=== PATIENT | female | born 1970 | race Caucasian/White ===

== ENCOUNTER 2018-12-24 04:49 | Emergency (ER) | payer BC ==
[~2018-12-24] VITALS: Ht 172.7 cm; Wt 113.4 kg
[2018-12-24] MEDS ORDERED: IV NORMAL SALINE 1000ML BAG 1,000 ML IV ONE (05:15)
--- NOTE | 2018-12-24 05:18 | EKG ---
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
[2018-12-24 05:35] LABS: CALCIUM 10.8 mg/dL (8.5-10.1); CREATININE 0.7 mg/dL (0.6-1.0); GFR 89.3; POTASSIUM 3.9 mmol/L (3.5-5.1)
[2018-12-24 05:39] LABS: BASO # 0.1 x10^3/uL (0.0-0.2); BASO % 1 % (0-3); EOS # 0.1 x10^3/uL (0.0-0.7); EOS % 1 % (0-3); HEMATOCRIT 41.2 % (36.0-47.0); HEMOGLOBIN 13.9 g/dL (12.0-15.5); LYMPH # 2.7 x10^3/uL (1.0-4.8); LYMPH % 27 % (24-48); MEAN CORPUSCULAR HEMOGLOBIN 31 pg (25-35); MEAN CORPUSCULAR HGB CONC 34 g/dL (31-37); MEAN CORPUSCULAR VOLUME 92 fL (79-100); MONO # 0.7 x10^3/uL (0.0-1.1); MONO % 7 % (0-9); NEUT # 6.5 x10^3uL (1.8-7.7); NEUT % 65 % (31-73); PLATELET COUNT 312 x10^3/uL (140-400); RED BLOOD COUNT 4.45 x10^6/uL (3.50-5.40); RED CELL DISTRIBUTION WIDTH 13.7 % (11.5-14.5); WHITE BLOOD COUNT 10.1 x10^3/uL (4.0-11.0)
[2018-12-24 05:41] LABS: ALBUMIN/GLOBULIN RATIO 1.1 (1.0-1.7); MAGNESIUM 1.8 mg/dL (1.8-2.4); TOTAL BILIRUBIN 0.3 mg/dL (0.2-1.0); TOTAL PROTEIN 7.8 g/dL (6.4-8.2)
[2018-12-24 05:49] LABS: CREATINE KINASE 99 U/L (26-192)
--- NOTE | 2018-12-24 05:53 | PHYS DOC ---
Past Medical History Past Medical History: Depression, High Cholesterol, Hypertension, Other Additional Past Medical Histor: RA (ARASH NORIEGA DO) Past Surgical History: Cervical Fusion, Oophorectomy, Tubal ligation Additional Past Surgical Histo: L OVARY (ARASH NORIEGA DO) Smoking: Cigarettes, 1 Pack Per Day Alcohol Use: Occasionally Drug Use: None (ARASH NORIEGA DO) Adult General Chief Complaint Chief Complaint: ANXIETY/PANIC ATTACK HPI HPI 48-year-old female presents with report of palpitations and shakiness which started at 1900 last night. Denies known stressors. Patient reports sensation of almost passing out. Denies nausea or vomiting. Denies leg swelling or calf tenderness. Denies trauma. Family reports concern for possible panic attack. Patient reports she was able to sleep last nigh,t but awoke early this morning with same symptoms and therefore decided to present to the ER for further evaluation and treatment. Denies suicidal or homicidal ideation. (ARASH NORIEGA DO) Review of Systems Review of Systems Constitutional: Denies fever or chills [] Eyes: Denies change in visual acuity, redness, or eye pain [] HENT: Denies nasal congestion or sore throat [] Respiratory: Denies cough or shortness of breath [] Cardiovascular: Denies chest pain; reports palpitations GI: Denies abdominal pain, nausea, vomiting, or diarrhea [] : Denies dysuria or hematuria [] Musculoskeletal: Denies back pain or joint pain [] Integument: Denies rash or skin lesions [] Neurologic: Denies headache, focal weakness or sensory changes; reports lightheadedness Psychiatric: Denies suicidal or homicidal ideation; reports anxiety Complete systems were reviewed and found to be within normal limits, except as documented in this note. (ARASH NORIEGA DO) Current Medications Current Medications Current Medications Medications (Trade) Dose Ordered Sig/Latoya Start Time Stop Time Status Last Admin Dose Admin Lorazepam (Ativan) 0.5 mg 1X ONCE 12/24/18 05:30 12/24/18 05:31 DC 12/24/18 05:27 0.5 MG Sodium Chloride 1,000 ml @ 1,000 mls/hr 1X ONCE 12/24/18 05:15 12/24/18 06:14 DC 12/24/18 05:26 1,000 MLS/HR (MILA EWING MD) Allergies Allergies Allergies Coded Allergies Type Severity Reaction Last Updated Verified No Known Drug Allergies 12/24/18 No (MILA EWING MD) Physical Exam Physical Exam Constitutional: Well developed, well nourished, anxious in appearance, non-toxic HENT: Normocephalic, atraumatic, oropharynx moist Eyes: PERRL, EOMI, conjunctiva normal, no discharge. [] Neck: Normal range of motion, no tenderness, supple, no stridor. [] Cardiovascular:Heart rate regular rhythm, no murmur [] Lungs & Thorax: Bilateral breath sounds clear to auscultation [] Abdomen: Soft, no tenderness, no masses, no pulsatile masses. [] Skin: Warm, dry, no erythema, no rash. [] Extremities: No tenderness, ROM intact, no edema. [] Neurologic: Alert and oriented X 3, normal motor function, normal sensory function, no focal deficits noted. [] Psychologic: Affect anxious, judgement normal (ARASH NORIEGA DO) Current Patient Data Vital Signs Vital Signs Date Time Temp Pulse Resp B/P (MAP) Pulse Ox O2 Delivery O2 Flow Rate FiO2 12/24/18 04:49 98.6 92 20 151/97 (115) 97 Room Air 98.6 (MILA EWING MD) Lab Values Laboratory Tests Test 12/24/18 05:10 12/24/18 05:50 White Blood Count 10.1 x10^3/uL (4.0-11.0) Red Blood Count 4.45 x10^6/uL (3.50-5.40) Hemoglobin 13.9 g/dL (12.0-15.5) Hematocrit 41.2 % (36.0-47.0) Mean Corpuscular Volume 92 fL (79-100) Mean Corpuscular Hemoglobin 31 pg (25-35) Mean Corpuscular Hemoglobin Concent 34 g/dL (31-37) Red Cell Distribution Width 13.7 % (11.5-14.5) Platelet Count 312 x10^3/uL (140-400) Neutrophils (%) (Auto) 65 % (31-73) Lymphocytes (%) (Auto) 27 % (24-48) Monocytes (%) (Auto) 7 % (0-9) Eosinophils (%) (Auto) 1 % (0-3) Basophils (%) (Auto) 1 % (0-3) Neutrophils # (Auto) 6.5 x10^3uL (1.8-7.7) Lymphocytes # (Auto) 2.7 x10^3/uL (1.0-4.8) Monocytes # (Auto) 0.7 x10^3/uL (0.0-1.1) Eosinophils # (Auto) 0.1 x10^3/uL (0.0-0.7) Basophils # (Auto) 0.1 x10^3/uL (0.0-0.2) Sodium Level 139 mmol/L (136-145) Potassium Level 3.9 mmol/L (3.5-5.1) Chloride Level 101 mmol/L (98-107) Carbon Dioxide Level 26 mmol/L (21-32) Anion Gap 12 (6-14) Blood Urea Nitrogen 10 mg/dL (7-20) Creatinine 0.7 mg/dL (0.6-1.0) Estimated GFR (Cockcroft-Gault) 89.3 BUN/Creatinine Ratio 14 (6-20) Glucose Level 131 mg/dL (70-99) H Calcium Level 10.8 mg/dL (8.5-10.1) H Magnesium Level 1.8 mg/dL (1.8-2.4) Total Bilirubin 0.3 mg/dL (0.2-1.0) Aspartate Amino Transferase (AST) 17 U/L (15-37) Alanine Aminotransferase (ALT) 30 U/L (14-59) Alkaline Phosphatase 80 U/L (46-116) Creatine Kinase 99 U/L (26-192) Creatine Kinase MB (Mass) < 0.5 ng/mL (0.0-3.6) Creatine Kinase MB Relative Index % (0-4) Troponin I Quantitative < 0.017 ng/mL (0.000-0.055) Total Protein 7.8 g/dL (6.4-8.2) Albumin 4.0 g/dL (3.4-5.0) Albumin/Globulin Ratio 1.1 (1.0-1.7) Thyroid Stimulating Hormone (TSH) 3.109 uIU/mL (0.358-3.74) Free Thyroxine 0.84 ng/dL (0.76-1.46) Free Triiodothyronine (T3) pg/mL 3.76 pg/mL (2.18-3.98) Urine Collection Type Unknown Urine Color Yellow Urine Clarity Clear Urine pH 7.0 Urine Specific Franklin 1.010 Urine Protein Negative mg/dL (NEG-TRACE) Urine Glucose (UA) Negative mg/dL (NEG) Urine Ketones (Stick) Negative mg/dL (NEG) Urine Blood Negative (NEG) Urine Nitrite Negative (NEG) Urine Bilirubin Negative (NEG) Urine Urobilinogen Dipstick 0.2 mg/dL (0.2 mg/dL) Urine Leukocyte Esterase Negative (NEG) Urine RBC 0 /HPF (0-2) Urine WBC 0 /HPF (0-4) Urine Bacteria 0 /HPF (0-FEW) Laboratory Tests 12/24/18 05:10 Laboratory Tests 12/24/18 05:10 (MILA EWING MD) EKG EKG @0506 NSR at 84bpm, NO ST elevation, (ARASH NORIEGA DO) Radiology/Procedures Radiology/Procedures [] (ARASH NORIEGA DO) Course & Med Decision Making Course & Med Decision Making Pertinent Lab studies reviewed. (See chart for details) Patient presents with history of present illness and physical exam consistent for anxiety. Patient does report associated palpitations and lightheadedness. Patient neurologically intact. EKG stable. Labs obtained and pending at this time. Ativan provided with interval improvement of symptoms. Sign out given to Dr. Ewing for further evaluation and final disposition. Discussed current findings and plan with patient and family, who acknowledge understanding and agreement. (ARASH NORIEGA DO) Course & Med Decision Making 6:25 AM: Patient care was assumed from Dr. Noriega at shift change, patient reported palpitations, no evidence of ectopy noted on monitor, EKG normal, patient without chest pain. She is feeling much better after anxiolytics. I discussed test results with the patient, the need for close PCP follow-up, as well as cardiology follow-up if palpitations persist, and we discussed return precautions. (MILA EWING MD) Dragon Disclaimer Dragon Disclaimer This electronic medical record was generated, in whole or in part, using a voice recognition dictation system. (ARASH NORIEGA DO) Departure Departure Impression: Primary Impression: Palpitations Additional Impression: Anxiety Disposition: HOME, SELF-CARE Condition: STABLE Referrals: ARAVIND ARVIZU MD (PCP) CHRISTOPHER ZHU MD Patient Instructions: Anxiety and Panic Attacks, [id number], Palpitations, [id number] Problem Qualifiers ARASH NORIEGA DO Dec 24, 2018 05:53 MILA EWING MD Dec 24, 2018 06:29
[2018-12-24 06:00] VITALS: BP 107/73
[2018-12-24 06:01] LABS: BILIRUBIN,URINE NEGATIVE (NEG); CLARITY,URINE CLEAR; COLOR,URINE YELLOW; NITRITE,URINE NEGATIVE (NEG); PROTEIN,URINE NEGATIVE (NEG-TRACE); UROBILINOGEN,URINE 0.2 mg/dL (0.2 mg/dL)
[2018-12-24 06:09] LABS: FREE T4 0.84 ng/dL (0.76-1.46); THYROID STIM HORMONE (TSH) 3.109 uIU/mL (0.358-3.74)
[2018-12-24 06:12] LABS: BACTERIA,URINE 0 /HPF (0-FEW); RBC,URINE 0 /HPF (0-2); WBC,URINE 0 /HPF (0-4)
== END 2018-12-24 06:30 | disposition home or self-care (01) ==
LOC: ER 04:49
DX: F41.9 Anxiety disorder, unspecified (principal); R00.2 Palpitations; R42 Dizziness and giddiness; F32.9 Major depressive disorder, single episode, unspecified; E78.00 Pure hypercholesterolemia, unspecified; I10 Essential (primary) hypertension; F17.210 Nicotine dependence, cigarettes, uncomplicated; M06.9 Rheumatoid arthritis, unspecified; Z98.51 Tubal ligation status; Z90.721 Acquired absence of ovaries, unilateral
CPT/HCPCS: 36415; 80053; 81001; 82553; 83735; 84439; 84443; 84481; 84484; 85025; 93005; 96361; 96374; 99284; J2060; J7030

== ENCOUNTER → 2019-01-14 | Day surgery (SDC) | payer BC ==
[~2019-01-14] MED LIST: ASPI-630 PO; CHOL2000 PO; CRESTOR20 MG PO; ETOD400T PO; HYDR200T5 PO; IV RINGERS,LACTATED 1000ML 1,000 ML IV SCH; LISI-334 PO; LORA10TA3 PO; METH2.5T PO; OXYC-411 PO; PRED2.5T PO; PROPOFOL 40 ML IV ONE; SERT50TA PO
--- NOTE | 2019-01-14 11:18 | PREOP HP ---
DATE OF SERVICE: 01/14/2019 REQUESTING PHYSICIAN: Dr. Jolene Gary. REASON FOR PROCEDURE: Abdominal pain. HISTORY OF PRESENT ILLNESS: This is a 48-year-old female who presents for epigastric abdominal pain. She was last seen in our office on 06/29/2018. She has continued to have episodes of the pain and she had recent anxiety attacks. ALLERGIES: No known drug allergies. PAST MEDICAL HISTORY: 1. Anxiety. 2. Hypercholesterolemia. 3. Fibromyalgia. 4. Diverticulitis. SOCIAL HISTORY: She admits to tobacco. She denies illicit drug use, but drinks 7 or less alcoholic beverages a week. MEDICATIONS: MAR reviewed. REVIEW OF SYSTEMS: A 13-point review of systems was done. It is positive per HPI, otherwise negative. PHYSICAL EXAMINATION: VITAL SIGNS: She is afebrile and her vital signs are stable. GENERAL: She is a well-developed, well-nourished female, in no apparent distress. HEENT: Oropharynx is clear. CARDIOVASCULAR: S1, S2. LUNGS: Clear. ABDOMEN: Active bowel sounds, soft, nontender, nondistended. EXTREMITIES: No edema. NEUROLOGIC: Awake, alert and oriented x 3. ASSESSMENT AND PLAN: Epigastric abdominal pain. The risks and benefits including bleeding, perforation, non-diagnosis and sedation were explained. She has agreed to proceed. Thank you for allowing me to participate in the care of this patient. PAM CHOE MD DR: TRELL/nella JOB#: [id number] / [id number]
[2019-01-14 11:37] VITALS: BP 111/55
--- NOTE | 2019-01-15 17:10 | PATHOLOGY ---
[facility] Accession Number: [id number] . 01 Material submitted: . PART A: SMALL BOWEL BIOPSY PART B: GASTRIC ANTRUM BIOPSY PART C: DISTAL ESOPHAGUS . 01 Clinical history: . Epigastric pain . 02 Diagnosis: A. Small bowel biopsy: - No significant pathologic abnormalities, with prominent submucosal Manfred's glands. . B. Gastric biopsy, antrum: - Chronic gastritis, mild. . C. Esophageal biopsy, distal esophagus: - Segments of hyperplastic squamous esophageal mucosa with focal contiguous columnar lined mucosa showing chronic inflammation and focal intestinal metaplasia with goblet cells consistent with Watkins's change. . (JPM:pit 01/15/2019) [facility]/01/15/2019 . 02 Comment: Sections of the small bowel biopsy reveal segments of duodenal mucosa. There are prominent submucosal Manfred's glands. The mucosal villi show no sprue-like changes or significant inflammatory changes. . Sections of the gastric antral biopsy show congestion and mild chronic inflammation. A properly controlled immunoperoxidase stain for Helicobacter is negative for Helicobacter organisms. . Sections of the distal esophageal biopsy reveal segments of tangentially oriented, hyperplastic squamous esophageal mucosa with focally contiguous columnar lined mucosa showing chronic inflammation and focal intestinal metaplasia with goblet cells, consistent with Watkins's change. There is no dysplasia or evidence of malignancy. (JPM:pit 01/15/2019) . Special stain performed: Immunoperoxidase for Helicobacter on B1. . 02 Electronically signed: . Ivan Cruz MD, Pathologist NPI- [id number] . 01 Gross description: . A. Received in formalin labeled "Leny Jackson, small bowel BX," are 3 segments of caruso soft tissue measuring 0.9 x 0.6 x 0.2 cm in aggregate dimensions and ranging from 0.4 to 0.6 cm in maximum dimension. The specimen is submitted entirely in cassette A1. . B. Received in formalin labeled "Leny Jackson, gastric antrum BX," are 2 segments of caruso soft tissue measuring 0.7 x 0.3 x 0.2 cm in aggregate dimensions and ranging from 0.3 to 0.4 cm in maximum dimension. The specimen is submitted entirely in cassette B1. . C. Received in formalin labeled "Leny Jackson, distal esophagus BX," are 4 segments of caruso soft tissue measuring 1.2 x 0.8 x 0.2 cm in aggregate dimensions and ranging from 0.3 to 0.6 cm in maximum dimension. The specimen is submitted entirely in cassette C1. ([facility]; 01/14/2019 TOB/TOB . 02 Pathologist provided ICD-10: K29.50, K20.9, K22.70 . 02 CPT . 941688, 603240, 929105, N22890 Specimen Comment: A courtesy copy of this report has been sent to Specimen Comment: [phone], . Specimen Comment: Report sent to / DR ARVIZU Specimen Comment: A duplicate report has been generated due to demographic updates. Performed at: 01 [facility] [address] [facility] [address], [place], [place] [id number] MD Jorge Luis Beasley MD Phone: [phone] Performed at: 02 [facility] [address] [place], [place] [id number] MD Ivan Cruz MD Phone: [phone]
== END | disposition home or self-care (01) ==
LOC: ENDOS 09:28
PROVIDERS: ATTEND Internal Medicine Gastroenterology
DX: K21.0 Gastro-esophageal reflux disease with esophagitis (principal); K29.50 Unspecified chronic gastritis without bleeding; K22.70 Barrett's esophagus without dysplasia; F41.9 Anxiety disorder, unspecified; E78.00 Pure hypercholesterolemia, unspecified; M79.7 Fibromyalgia; Z72.89 Other problems related to lifestyle; Z86.010 Personal history of colon polyps; F17.210 Nicotine dependence, cigarettes, uncomplicated; Z79.82 Long term (current) use of aspirin; Z79.899 Other long term (current) drug therapy; Z98.890 Other specified postprocedural states
CPT/HCPCS: 43239; 88305; 88342; J2704

== ENCOUNTER → 2021-09-06 | Day surgery (SDC) | payer OTHER ==
[~2021-09-06] VITALS: Ht 172.7 cm; Wt 94.0 kg
[~2021-09-06] MED LIST changes: +CYCL10TA2 PO; -ETOD400T PO; +ETOD400T3 PO; +LIDOCAINE 2% PF 5 ML VIAL. ONE; -LISI-334 PO; +LISI20TA18 PO; +OMEP40CA7 PO; -OXYC-411 PO; +OXYC1TAB20 PO; +PROPOFOL 10 MG/ML (20ML) VIAL. IV ONE; -PROPOFOL 40 ML IV ONE; +SODIUM PHOSPHATES 19/7GM 133 ML ENEMA. ONE
[2021-09-06 08:47] VITALS: BP 115/56
--- NOTE | 2021-09-06 10:46 | PREOP HP ---
DATE OF SERVICE: 09/06/2021 DATE OF PROCEDURE: 09/06/2021 REQUESTING PHYSICIAN: Ashish Givens. PRIMARY CARE PHYSICIAN: Ashish Givens. REASON FOR PROCEDURE: Watkins's. HISTORY OF PRESENT ILLNESS: A 51-year-old female who presents for Watkins's esophagus evaluation. PAST MEDICAL HISTORY: Watkins's. SOCIAL HISTORY: She admits to tobacco and alcohol, but denies IV drug abuse. MEDICATIONS: MAR reviewed. REVIEW OF SYSTEMS: A 13-point review of systems was done and it is positive as per HPI and otherwise negative. PHYSICAL EXAMINATION: VITAL SIGNS: She is afebrile. Vital signs are stable. GENERAL: She is a well-developed, well-nourished female in no apparent distress. HEENT: Oropharynx is clear. CARDIAC: S1, S2. LUNGS: Clear. ABDOMEN: Normoactive bowel sounds, soft, nontender, nondistended. EXTREMITIES: No edema. NEUROLOGIC: Awake, alert, oriented x 3. ASSESSMENT AND PLAN: Watkins's esophagus. The risks and benefits of the procedure including bleeding, perforation, nondiagnosis and sedation were explained and she has agreed to proceed. CHANDLER DR: Alejandra TID: [id number]
[2021-09-06 10:58] VITALS: BP 100/61
--- NOTE | 2021-09-07 17:07 | PATHOLOGY ---
[facility] Accession Number: [id number] . 01 Material submitted: . PART A: small bowel - SMALL BOWEL BIOPSY PART B: stomach - ANTRUM AND BODY BIOPSY PART C: esophagus - DISTAL ESOPHAGUS BIOPSY. Modifiers: distal . 01 Clinical history: . HX DIOP'S EGD . 02 Diagnosis: A. Small bowel biopsies: - No diagnostic abnormalities. . B. Gastric biopsies: - Chronic gastritis, mild, with small focus of intestinal metaplasia. . C. Esophageal biopsies, distal esophagus: - Segments of hyperplastic squamous esophageal mucosa with focal contiguous columnar-lined mucosa showing chronic inflammation and intestinal metaplasia with goblet cells consistent with Diop's change. LBQ 09/07/2021 1656 Local . 02 Comment: Sections of the small bowel biopsy reveal multiple segments of duodenal mucosa. Where best oriented, the mucosal villi show no sprue-like changes or significant inflammatory changes. . Sections of the gastric biopsy reveal segments of gastric antral and antral/body transition mucosa showing congestion and very mild chronic inflammation with a small focus of intestinal metaplasia. A properly controlled immunoperoxidase stain for Helicobacter is negative for Helicobacter organisms. . Sections of the distal esophageal biopsy reveals multiple segments of hyperplastic squamous esophageal mucosa consistent with reflux changes. One of the biopsy segments has contiguous columnar lined mucosa showing mild chronic inflammation and intestinal metaplasia with goblet cells consistent with Diop's change. There is no dysplasia or evidence of malignancy. (JPM/db; 09/07/2021) . Special stain performed: Immunoperoxidase stain for Helicobacter on B1 . Electronically signed: . Ivan Cruz MD, Pathologist NPI- [id number] . 01 Gross description: . A. The specimen is submitted in formalin, labeled "Leny Jackson, small bowel biopsy". Received are multiple segments of pale caruso tissue ranging in size from 0.2 to 0.3 cm in maximum dimensions. The specimen is submitted entirely in cassette A1. . B. The specimen is submitted in formalin, labeled "Harrison, Leny, antrum and body". Received are 4 segments of pale caruso tissue ranging in size from 0.4 to 0.5 cm in maximum dimensions. The specimen is submitted entirely in cassette B1. . C. The specimen is submitted in formalin, labeled "Harrison, Leny, distal esophagus biopsy". Received are multiple segments of pale caruso tissue ranging in size from 0.2 to 0.5 cm in maximum dimensions. The specimen is submitted entirely in cassette C1. ([facility]; 09/06/2021) NRI/NRI 09/06/2021 1918 Local . 02 Pathologist provided ICD-10: K29.50, K20.90, K22.70 . 02 CPT . 049229, 422560, 746915, L51954 Specimen Comment: A courtesy copy of this report has been sent to [phone], [phone] Specimen Comment: [id number] Specimen Comment: Report sent to / DR Naina ARVIZU Performed at: 01 [facility] [address] [facility] [address], [place] [id number] MD Antonino Aj MD Phone: [phone] Performed at: 02 [facility] [address] [place], [place] [id number] MD Ivan Cruz MD Phone: [phone]
== END | disposition home or self-care (01) ==
LOC: ENDOS 08:25
PROVIDERS: ATTEND Internal Medicine Gastroenterology
DX: K22.70 Barrett's esophagus without dysplasia (principal); K29.50 Unspecified chronic gastritis without bleeding; K21.00 Gastro-esophageal reflux disease with esophagitis, without bleeding; K31.89 Other diseases of stomach and duodenum; K44.9 Diaphragmatic hernia without obstruction or gangrene; E78.00 Pure hypercholesterolemia, unspecified; M19.90 Unspecified osteoarthritis, unspecified site; F32.9 Major depressive disorder, single episode, unspecified; Z87.891 Personal history of nicotine dependence; Z79.899 Other long term (current) drug therapy; Z98.890 Other specified postprocedural states; Z72.89 Other problems related to lifestyle
CPT/HCPCS: 43239; J2704